=== PATIENT | male | born 1985 | race Hispanic/Latino ===

== ENCOUNTER 2016-09-26 07:02 | Day surgery (SDC) | payer BC ==
[~2016-09-26 07:02] MED LIST: ACETAMINOPHEN WITH CODEINE 1 EACH TABLET PO PRN; DIAZEPAM 5 MG TABLET PO PRN; ONDANSETRON HCL/PF 2 MG/ML VIAL IV PRN; oxyCODONE HCL/ACETAMINOPHEN 1 TAB TABLET PO PRN
[2016-09-26] MEDS ORDERED: BUPIVACAINE HCL 50 ML VIAL IJ ONE ×2 (08:27)
[2016-09-26] MEDS ORDERED: BACITRACIN ZINC 30 APPL TUBE TP ONE ×2 (08:31→08:50)
[2016-09-26 10:06] VITALS: BP 113/64
== END 2016-09-26 07:03 | disposition home or self-care (01) ==
LOC: AMB 07:02
PROVIDERS: ATTEND Urology
PROC: 0VBQ0ZZ Excision of Bilateral Vas Deferens, Open Approach (ICD-10-PCS; principal; 2016-09-26 08:00)
DX: Z30.2 Encounter for sterilization (principal); Z68.28 Body mass index [BMI] 28.0-28.9, adult